=== PATIENT | female | born 1955 | race Caucasian/White ===

== ENCOUNTER 2024-04-26 11:40 | Outpatient (CLI) | payer MEDICARE, SELFPAY ==
--- NOTE | 2024-04-26 11:40 | MM_ITS ---
WS: [id number] Bilateral screening 3D tomosynthesis digital mammogram, 04/26/2024 11:43 AM Clinical Data: SCREENING Comparison: 10/13/2016, 05/15/2012. Findings: No spiculated masses or clustered calcifications are seen. There are no secondary signs of carcinoma . MM/MM scr BI tomosynthesis [id number] Impression: Negative bilateral mammogram unchanged. Recommend annual screening mammograms. BIRADS: 1 - Negative. FOLLOW UP: 1 Year Follow-up DENSITY: The breasts are almost entirely fatty. The CAD shellfish checker was used
== END 2024-04-26 11:41 | disposition home or self-care (01) ==
LOC: MOBLMAM 11:48
PROVIDERS: PCP Family Medicine; Visit Provider Family Medicine
DX: Z12.31 Encounter for screening mammogram for malignant neoplasm of breast (principal)
CPT/HCPCS: 77063; 77067

== ENCOUNTER 2025-06-06 17:38 | Emergency (ER) | payer MEDICARE, SELFPAY ==
[2025-06-06 17:42] VITALS: BP 138/100; PULSE 72; RESP 17; TEMP 36.5; O2SAT 96; BMI 27.3
--- NOTE | 2025-06-06 17:48 | W.ED.GENADLT ---
HPI - General Adult General: Chief complaint: Wound/Laceration Stated complaint: rt thumb lac Time Seen by Provider: 06/06/25 17:43 Source: patient Mode of arrival: ambulatory Limitations: no limitations History of Present Illness: 69-year-old female states she was using a machine clerical verifier at 1630 and lacerated the tip of her right thumb. She states that she is not able to get the bleeding to stop. She denies any other injury she is up-to-date on her tetanus rates her pain a 3 out of 10 Related Data Allergies Allergy/AdvReac Type Severity Reaction Status Date / Time No Known Allergies Allergy Verified 06/06/25 17:49 Physical Exam Const: COMMON NORMALS: no acute distress, patient oriented x3 and healthy appearing HENMT: COMMON NORMALS: normocephalic and atraumatic HEAD & SCALP: normocephalic and atraumatic Neck/C-Spine: COMMON NORMALS: full ROM and supple Chest: COMMONS NORMALS: normal inspection of the chest Resp: COMMON NORMALS: normal respiratory effort Cardio: COMMON NORMALS: regular rate RATE: regular rate Extremity: COMMON NORMALS: full ROM Neuro: COMMON NORMALS: patient oriented x3, moves all extremities and no focal motor deficits Psych: COMMON NORMALS: mental status grossly normal, Normal thought process present and cooperative THOUGHT PROCESS: Normal thought process present Skin: COMMON NORMALS: no rashes or lesions noted NARRATIVE SKIN EXAM: 1 cm laceration over distal tip of right thumb GENERAL SKIN EXAM: no rashes or lesions noted Procedures Laceration Laceration 1: Site: hand Side (If applicable): right Size (cm): 1 Description: linear Depth: simple, single layer Pre-repair: wound explored, irrigated extensively and deep structures intact Skin layer closed with: other (dermabond) Course Vital Signs: Vital signs: Vital Signs Temperature 97.7 F 06/06/25 17:42 Pulse Rate 58 L 06/06/25 17:52 Respiratory Rate 17 06/06/25 17:42 Blood Pressure 138/100 06/06/25 17:52 Pulse Oximetry 92 06/06/25 17:52 Oxygen Delivery Me thod Room Air 06/06/25 17:42 MDM - General Adult Medical Decision Making Patient presents here with a laceration to the distal tip of her right thumb did repair it with Dermabond she is well-appearing here she stable for discharge follow-up with PCP return if worsening No radiology studies performed this visit Discharge Plan Discharge Patient Disposition: Home Clinical Impression: Laceration of left thumb Condition: Stable Discharge Orders: Discharge ED (Routine); Ordered 06/06/25 Ordered By: Peyman Bhakta Referrals: Bonifacio Morgan MD [Primary Care Provider, [facility]] Discharge Diet: Advance as tolerated Discharge Activity: Resume usual activity Patient Instructions: Laceration (ED) Print Language: Mohawk Coding Level of Care Code ED Microbiological Laboratory Technician for Jayna Powell
--- OUTSIDE RECORDS SUMMARY | 2025-06-06 17:49 | XMS_ITS | Encounter Summary ---
Author Organization [facility] Address [address] [place] [address] Care Team Providers Care Steam Trap Man Name Role Phone Chidi Araya MD Primary Care Provider +1 [phone] Encounter Details Date Type Department Care Team (Latest Contact Info) Description 08/13/2003 Outpatient Historical [facility] Family Medicine [place] [address] [address] Chalino Rivas DO NO ADDRESS ON FILE LUMBAGO (Primary Dx) Social History Tobacco Use Types Packs/Day Years Used Date Smoking Tobacco: Never Assessed Comments Unknown Sex and Gender Information Value Date Recorded Sex Assigned at Not on file 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
--- OUTSIDE RECORDS SUMMARY | 2025-06-06 17:49 | XMS_ITS | Encounter Summary ---
Author Organization [facility] Address [address] [place] [address] Care Team Providers Care Picking Belt Operator Name Role Phone Chidi Araya MD Primary Care Provider +1 [phone] Encounter Details Date Type Department Care Team (Latest Contact Info) Description 04/23/2002 Outpatient Historical [facility] Medicine [place] [address] [address] Chalino Rivas DO NO ADDRESS ON FILE DEPRESSIVE DISORDER NEC (Primary Dx) Social History Tobacco Use Types Packs/Day Years Used Date Smoking Tobacco: Never Assessed Comments Unknown Sex and Gender Information Value Date Recorded Sex Assigned at Not on file Legal Sex Female 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
--- OUTSIDE RECORDS SUMMARY | 2025-06-06 17:49 | XMS_ITS | Clinical Summary ---
Author Organization [facility] Address [address] [facility] [address] [place] [address] Phone Care Team Providers Care Machine Printer Name Role Phone Chidi Araya MD Primary Care Provider +1 [phone] Allergies Active Allergy Reactions Criticality Noted Date Comments Cefaclor Itching Low 12/24/2017 Medications calcium-vitamin D3 (CALTRATE 600+D) 600 mg(1,500mg) -200 unit Tablet Take by mouth late in the day. Active aspirin (ILAN CHEWABLE) 81 mg Tablet, Chewable Take 81 mg by mouth late in the day. Active glucosamine/methyl sulfonylmeth (GLUCOSAMINE MSM ORAL) Take by mouth. Activ e PARoxetine HCl (PAXIL) 20 mg tabletIndications: Recurrent major depressive disorder, in full remission Take 1 Tablet (20 mg) by mouth daily. 90 Tablet 3 1 Active simvastatin (ZOCOR) 20 mg tabletIndications: Hyperlipidemia, unspecified hyperlipidemia type Take 1 Tablet (20 mg) by mouth daily with supper. 90 Tablet 3 1 Active CPAP / BIPAP suppliesIndication s:HARSHAD on CPAP Length of need: 99 months Mask Type: full face with headgear every 6 months, mask only every 3 months,2 cushions per month. Tubing: heated 1 every 3 months, water chamber 1 every 6 months, chin strap 1 every 6 months, filters disposable 2 per month, filters reusable 1 per 6 months. 1 Each 1 Active Active Problems Problem Noted Date Diagnosed Date Hyperlipidemia 11/07/2020 HARSHAD on CPAP 11/07/2020 Recurrent major depressive disorder, in full rem ission 09/22/2020 Vitamin B12 deficiency (non anemic) 09/22/2020 Stage 3a chronic kidney disease 09/22/2020 Immunizations Immunization Administration Dates Next Due (ADACEL/BOOSTRIX)(10 YR UP) TDAP VACCINE, 0.5ML, IM 11/05/2020 (TDVAX)(7 YRS UP) TETANUS AN D DIPHTHERIA TOXOIDS, ADSORBED (2 LF OF TETANUS TOXOID AND 2 LF OF DIPHTHERIA TOXOID), 0.5ML (PF), IM 11/12/2003,11/28/1998 Family History Medical History Relation Name Comments Breast Cancer Neg Hx Colon Cancer Neg Hx Social History Tobacco Use Types Packs/Day Years Used Date Smoking Tobacco: Never Smokeless Tobacco: Never Alcohol Use Standard Drinks/Week Comments No 0 (1 standard drink = 0.6 oz pur e alcohol) Comments No Sex and Gender Information Value Date Recorded Sex Assigned at Not on file 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 Gender Identity Not on file Sexual Orientation Not on file Last Filed Vital Signs Vital Sign Reading Time Taken Comments Blood Pressure 102/70 11/05/2020 1:33 PM CDT Pulse 76 11/05/2020 1:33 PM CDT Temperature 35.9 C (96.7 F) 11/05/2020 1:33 PM CDT Respiratory Rate 19 11/05/2020 1:33 PM CDT Oxygen Saturation 93% 11/05/2020 1:33 PM CDT Inhaled Oxygen Concentration - - Weight 75.6 kg (166 lb 9.6 oz) 11/05/2020 1:33 P M CDT Height 165.1 cm (5' 5 ) 11/05/2020 1:33 PM CDT Body Mass Index 27.72 11/05/2020 1:33 PM CDT Plan of Treatment Health Maintenance Due Date Last Done Comments FIT/ DNA Q 3 YEARS (AUTO ORDER) 1972 FIT/FOBT Q 1 YEAR (AUTO ORDER) 1972 FLEX SIG/CT COLONOGRAPHY Q 5 YEARS (AUTO ORDER) 1972 Traditional Medicare (ACO) A nnual Wellness Visit 1973 BREAST CANCER SCREENING 1994 FIT-DNA Q 3 years 1999 FIT/FOBT Q 1 year 1999 Flex Sig/CT Colonography Q 5 years 1999 PNEUMOCOCCAL VACCINE 50+ YEA RS (1 of 1 - PCV) 2004 RSV VACCINE (60+ or ) (1 - Risk 50-74 years 1-dose series) 2004 ZOSTER VACCINE (1 of 2) 2004 OSTEOPOROSIS SCREENING 09/28/2022 09/28/2017 INFLUENZA VACCINE (#1) 2025 09/22/2020 COLORECTAL CANCER SCREENING (AUTO ORDER) 10/12/2027 10/11/2017 COLORECTAL SCREENING 10/12/2027 10/11/2017 Colorectal Cancer Screening (AUTO ORDER) 10/12/2027 Colorectal Cancer Screening 10/12/2027 DTAP/TDAP/TD VACCINES (2 - T d or Tdap) 11/05/2030 11/05/2020, 11/12/2003, 11/28/1998 Procedures Procedure Name Priority Date/Time Associated Diagnosis Comments ENDOSCOPY, COLON, SCREENING Routine 10/11/2017 XR DEXA BONE DENSITY AXIAL 1 OR MORE SITES Routine 09/28/2017 from Last 3 Months or Most Recently Relevant to Health Maintenance Results * ENDOSCOPY, COLON, SCREENING (10/11/2017) us Abstract Spg Provider GI PROCEDURE ORDERABLES Fi nal Result * XR DEXA BONE DENSITY AXIAL 1 OR MORE SITES (09/28/2017) Anatomical Region Laterality Modality Other us Abstract Spg Provider DIAGNOSTIC IMAGING ORDERAB LES Final Result from Last 3 Months or Most Recently Relevant to Health Maintenance Insurance MEDICARE PART A AND B [employer] Care Teams Machine Printer Relationship Specialty Start Date End Date Chidi Araya MD [address] [address] PCP - General Family Practice 09/22/20
--- OUTSIDE RECORDS SUMMARY | 2025-06-06 17:49 | XMS_ITS | Encounter Summary ---
Author Organization [facility] Address [address] [place] [address] Care Team Providers Care Couture Dressmaker Name Role Phone Chidi Araya MD Primary Care Provider [phone] [phone] Encounter Details Date Type Department Care Team (Late st Contact Info) Description 11/06/2003 Outpatient Historical [facility] [address] [place] [address] [place] [address] [facility] [address] [place], [place] [id number] FX LUMBAR VERTEBRA-CLOSE ([facility]) (Primary Dx); CLOSE LUMBAR FX W CORD INJ ([facility]) Social History Tobacco Use Types Packs/Day Years Used Date Smoking Tobacco: Never Assessed Comments Unknown Sex and Gender Information Value Date Recorded Sex Assigned at Not on file Legal Sex Female 5:06 AM DIRECTOR TOXICOLOGY Gender Identity Not on file Sexual Orientation Not on file documented as of this encounter Plan of Treatment Not on file documented as of this encounter Visit Diagnoses Diagnosis Closed fracture of lumbar vertebra without mention of spinal cord injury- Primary Closed fracture of lumbar spine with spinal cord injury documented in this encounter Care Teams Couture Dressmaker Relationship Specialty Start Date End Date Chidi Araya MD [address] [facility] [address] [place] [address] PCP - General Family Practice 09/22/20 documented as of this encounter
--- OUTSIDE RECORDS SUMMARY | 2025-06-06 17:49 | XMS_ITS | Clinical Summary ---
Author Organization [facility] Address [address] [address] Phone Care Team Providers Care Geophysical Laboratory Chief Name Role Phone Unavailable Primary Care Provider Unavailabl e Allergies Active Allergy Reactions Criticality Noted Date Comments Cefaclor Itching Low 12/24/2017 Medications glucosamine/methyl sulfonylmeth (GLUCOSAMINE MSM ORAL) Take by mouth. 0 Active CPAP / BIPAP suppliesIndication s:HARSHAD on CPAP Length of need: 99 monthsMask Type: full face with headgear every 6 months, mask only every 3 months,2 cushions per month. Tubing: heated 1 every 3 months, water chamber 1 every 6 months, chin strap 1 every 6 months, filters disposable 2 per month, filters reusable 1 per 6 months. 1 Each 0 1 Active calcium-vitamin D3 (CALTRATE 600+D) 600 mg-5 mcg (200 unit) Tablet Take by mouth late in the day. 9 Active aspirin (ILAN CHEWABLE) 81 mg Tablet, Chewable Take 81 mg by mouth late in the day. 9 Active PARoxetine HCl (PAXIL) 20 mg tabletIndications: Recurrent major depressive disorder, in full remission Take 1 Tablet (20 mg) by mouth daily. 90 Tablet 3 3 Active simvastatin (ZOCOR) 20 mg tabletIndications: Hyperlipidemia, unspecified hyperlipidemia type Take 1 Tablet (20 mg) by mouth daily with supper. 90 Tablet 3 3 Active Hospital, Clinic, or Other Facility Administered Medication Ordered Dose Route Frequency Start Date End Date Status cyanocobalamin (VITAMIN B-12) injection 1,000 mcgIndications:Low vitamin B12 level 1000 mcg IM EVERY MONTH 01/16/2021 Active Active Problems Problem Noted Date Diagnosed Date Hyperlipidemia 11/07/2020 HARSHAD on CPAP 11/07/2020 Recurrent major depressive disorder, in full rem ission 09/22/2020 Stage 3a chronic kidney disease 09/22/2020 Vitamin B12 deficiency (non anemic) 09/22/2020 Immunizations Immunization Administration Dates Next Due (ADACEL/BOOSTRIX)(10 YR UP) TDAP VACCINE, 0.5ML, IM 11/05/2020 (TDVAX)(7 YRS UP) TETANUS AN D DIPHTHERIA TOXOIDS, ADSORBED (2 LF OF TETANUS TOXOID AND 2 LF OF DIPHTHERIA TOXOID), 0.5ML (PF), IM 11/12/2003,11/28/1998 Influenza Seasonal Unspecified Formulation IM Family History Medical History Relation Name Comments Breast Cancer Neg Hx Colon Cancer Neg Hx Social History Tobacco Use Types Packs/Day Years Used Date Smoking Tobacco: Never Smokeless Tobacco: Never Tobacco Cessation:Counseling Given: No Alcohol Use Standard Drinks/Week Comments No 0 (1 standard drink = 0.6 oz pur e alcohol) Comments No Sex and Gender Information Value Date Recorded Sex Assigned at Not on file 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 Gender Identity Not on file Sexual Orientation Not on file Last Filed Vital Signs Vital Sign Reading Time Taken Comments Blood Pressure 118/76 12/01/2022 11:35 AM CDT Pulse 86 12/01/2022 11:35 AM CDT Temperature 36.6 C (97.8 F) 12/01/2022 11:35 AM CDT Respiratory Rate 16 12/01/2022 11:35 AM CDT Oxygen Saturation 97% 12/01/2022 11:35 AM CDT Inhaled Oxygen Concentration - - Weight 71.7 kg (158 lb) 12/01/2022 11:35 AM CDT Height 167.6 cm (5' 6 ) 12/01/2022 11:35 AM CDT Body Mass Index 25.5 12/01/2022 11:35 AM CDT Plan of Treatment Health Maintenance Due Date Last Done Comments BREAST CANCER SCREENING 1994 FIT-DNA Q 3 years 1999 FIT/FOBT Q 1 year 1999 Flex Sig/CT Colonography Q 5 years 1999 PNEUMOCOCCAL VACCINE 50+ YEA RS (1 of 1 - PCV) 2004 RSV VACCINE (60+ or ) (1 - Risk 50-74 years 1-dose series) 2004 ZOSTER VACCINE (1 of 2) 2004 OSTEOPOROSIS SCREENING 09/28/2022 09/28/2017, 2017 INFLUENZA VACCINE (#1) 2025 3, 11/05/2021, 09/22/2020, Additional history exists COLORECTAL SCREENING 10/12/2027 10/11/2017, 10/12/19 18 Colorectal Cancer Screening 10/12/2027 DTAP/TDAP/TD VACCINES (2 - T d or Tdap) 11/05/2030 11/05/2020, 11/12/2003, 11/28/1998 Procedures Procedure Name Priority Date/Time Associated Diagnosis Comments ENDOSCOPY, COLON, SCREENING 10/11/2017 12:00 AM CDT XR DEXA BONE DENSITY AXIAL 1 OR MORE SITES 09/28/2017 12:00 AM CDT from Last 3 Months or Most Recently Relevant to Health Maintenance Results * ENDOSCOPY, COLON, SCREENING (10/11/2017 12:00 AM CDT) us Sgf Scanning GI PROCEDURE ORDERABLES Final Re sult * XR DEXA BONE DENSITY AXIAL 1 OR MORE SITES (09/28/2017 12:00 AM CDT) Anatomical Region Laterality Modality Other us Sgf Scanning DIAGNOSTIC IMAGING ORDERABLES Fi nal Result from Last 3 Months or Most Recently Relevant to Health Maintenance Insurance [facility]
--- OUTSIDE RECORDS SUMMARY | 2025-06-06 17:49 | XMS_ITS | Encounter Summary ---
Author Organization [facility] Address [address] [place] [address] Care Team Providers Care Bed Spring Maker Name Role Phone Chidi Araya MD Primary Care Provider [phone] [phone] Encounter Details Date Type Department Care Team (Latest Contact Info) Description 03/06/2004 Outpatient Historical [facility] Family Medicine [address] [address] Chalino Rivas DO NO ADDRESS ON FILE BACKACHE NOS (Primary Dx) Social History Tobacco Use Types Packs/Day Years Used Date Smoking Tobacco: Never Assessed Comments Unknown Sex and Gender Information Value Date Recorded Sex Assigned at Not on file Legal Sex Female 5:06 AM MANAGER ER Gender Identity Not on file Sexual Orientation Not on file documented as of this encounter Plan of Treatment Not on file documented as of this encounter Visit Diagnoses Diagnosis Backache, unspecified- Primary documented in this encounter Care Teams Bed Spring Maker Relationship Specialty Start Date End Date Chidi Araya MD [address] [address] PCP - General Family Practice 09/22/20 documented as of this encounter
--- OUTSIDE RECORDS SUMMARY | 2025-06-06 17:49 | XMS_ITS | Encounter Summary ---
Author Organization [facility] Address [address] [place] [address] Care Team Providers Care Veneer Marker Name Role Phone Chidi Araya MD Primary Care Provider [phone] [phone] Encounter Details Date Type Department Care Team (Latest Contact Info) Description 05/08/2003 Outpatient Historical [facility] [place] [address] [address] Chalino Rivas DO NO ADDRESS ON FILE INSOMNIA NEC (Primary Dx) Social History Tobacco Use Types Packs/Day Years Used Date Smoking Tobacco: Never Assessed Comments Unknown Sex and Gender Information Value Date Recorded Sex Assigned at Not on file Legal 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
--- OUTSIDE RECORDS SUMMARY | 2025-06-06 17:49 | XMS_ITS | Encounter Summary ---
Author Organization [facility] Address [address] [place] [address] Care Team Providers Care Signaling Design Engineer Name Role Phone Chidi Araya MD Primary Care Provider +1 -[phone] Encounter Details Date Type Department Care Team (Late st Contact Info) Description 08/16/2003 Outpatient Historical [facility] [address] [place] [address] [place] [address] [facility] [address] [place] [address] LUMBAGO (Primary Dx) Social History Tobacco Use Types Packs/Day Years Used Date Smoking Tobacco: Never Assessed Comments Unknown Sex and Gender Information Value Date Recorded Sex Assigned at Not on file Legal Sex Female 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
--- OUTSIDE RECORDS SUMMARY | 2025-06-06 17:49 | XMS_ITS | Encounter Summary ---
Author Organization [facility] Address [address] [place] [address] Care Team Providers Care Silk Screen Processor Name Role Phone Chidi Araya MD Primary Care Provider +1 -[phone] Encounter Details Date Type Department Care Team (Late st Contact Info) Description 10/02/2003 Outpatient Historical [facility] [address] 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
--- OUTSIDE RECORDS SUMMARY | 2025-06-06 17:49 | XMS_ITS | Encounter Summary ---
Author Organization [facility] Address [address] [place] [address] Care Team Providers Care Hub Bander Name Role Phone Chidi Araya MD Primary Care Provider +1 -[phone] Encounter Details Date Type Department Care Team (Latest Contact Info) Description 09/12/2002 Outpatient Historical [facility] Family Medicine [address] [address] Chalino Rivas DO NO ADDRESS ON FILE CHEST PAIN NOS (Primary Dx) Social History Tobacco Use Types Packs/Day Years Used Date Smoking Tobacco: Never Assessed Comments Unknown Sex and Gender Information Value Date Recorded Sex Assigned at Not on file Legal Sex Female 5: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
--- OUTSIDE RECORDS SUMMARY | 2025-06-06 17:49 | XMS_ITS | Encounter Summary ---
Author Organization [facility] Address [address] [place] [address] Care Team Providers Care Polystyrene Molding Machine Tender Name Role Phone Chidi Araya MD Primary Care Provider +1 -[phone] Encounter Details Date Type Department Care Team (Latest Contact Info) Description 01/20/2004 Outpatient Historical [facility] Family Medicine [address] [address] Chalino Rivas DO NO ADDRESS ON FILE BACKACHE NOS (Primary Dx) Social History Tobacco Use Types Packs/Day Years Used Date Smoking Tobacco: Never Assessed Comments Unknown Sex and Gender Information Value Date Recorded Sex Assigned at Not on file Legal Sex Female 5:06 AM PRIVACY DIRECTOR Gender Identity Not on file Sexual Orientation Not on file documented as of this encounter Plan of Treatment Not on file documented as of this encounter Visit Diagnoses Diagnosis Backache, unspecified- Primary documented in this encounter Care Teams Polystyrene Molding Machine Tender Relationship Specialty Start Date End Date Chidi Araya MD [address] [address] PCP - General Family Practice 09/22/20 documented as of this encounter
--- OUTSIDE RECORDS SUMMARY | 2025-06-06 17:49 | XMS_ITS | Encounter Summary ---
Author Organization [facility] Address [address] [place] [address] Care Team Providers Care Weighter Name Role Phone Chidi Araya MD Primary Care Provider [phone] Encounter Details Date Type Department Care Team (Latest Contact Info) Description 07/25/2003 Outpatient Historical [facility] [place] [address] 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
--- OUTSIDE RECORDS SUMMARY | 2025-06-06 17:49 | XMS_ITS | Encounter Summary ---
Author Organization [facility] Address [address] [place] [address] Care Team Providers Care Accounting File Clerk Name Role Phone Chidi Araya MD Primary Care Provider [phone] Encounter Details Date Type Department Care Team (Latest Contact Info) Description 02/12/2003 Outpatient Historical [facility] [place] [address] [address] Chalino Rivas DO NO ADDRESS ON FILE DEPRESSIVE DISORDER NEC (Primary Dx) Social History Tobacco Use Types Packs/Day Years Used Date Smoking Tobacco: Never Assessed Comments Unknown Sex and Gender Information Value Date Recorded Sex Assigned at Not on file 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
--- OUTSIDE RECORDS SUMMARY | 2025-06-06 17:49 | XMS_ITS | Encounter Summary ---
Author Organization [facility] Address [address] [place] [address] Care Team Providers Care Logistics Operations Manager Name Role Phone Chidi Araya MD Primary Care Provider [phone] Encounter Details Date Type Department Care Team (Late st Contact Info) Description 08/07/2003 Outpatient Historical [facility] [address] [place] [address] [place] [address] [facility] [address] [place] [address] FX LUMBAR VERTEBRA-CLOSE ([facility]) (Primary Dx) Social History Tobacco Use Types Packs/Day Years Used Date Smoking Tobacco: Never Assessed Comments Unknown Sex and Gender Information Value Date Recorded Sex Assigned at Not on file 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
--- OUTSIDE RECORDS SUMMARY | 2025-06-06 17:49 | XMS_ITS | Encounter Summary ---
Author Organization [facility] Address [address] [place] [address] Care Team Providers Care White Washer Piler Name Role Phone Chidi Araya MD Primary Care Provider [phone] Encounter Details Date Type Department Care Team (Latest Contact Info) Description 12/14/2002 Outpatient Historical [facility] [place] [address] [address] Chalino Rivas DO NO ADDRESS ON FILE Sprain lumbosacral (Primary Dx) Social History Tobacco Use Types Packs/Day Years Used Date Smoking Tobacco: Never Assessed Comments Unknown Sex and Gender Information Value Date Recorded Sex Assigned at Not on file 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
--- OUTSIDE RECORDS SUMMARY | 2025-06-06 17:49 | XMS_ITS | Encounter Summary ---
Author Organization [facility] Address [address] [place] [address] Care Team Providers Care Wool Grader Name Role Phone Chidi Araya MD Primary Care Provider [phone] Encounter Details Date Type Department Care Team (Latest Contact Info) Description 07/25/2003 Inpatient Historical [facility] Emergency Department [address] [place] [address] [place] [address] [facility] [address] [place] [address] CLOSE LUMBAR FX W CORD INJ (CMS/HCC) (Primary Dx) Social History Tobacco Use Types Packs/Day Years Used Date Smoking Tobacco: Never Assessed Comments Unknown Sex and Gender Information Value Date Recorded Sex Assigned at Not on file 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
--- OUTSIDE RECORDS SUMMARY | 2025-06-06 17:49 | XMS_ITS | Encounter Summary ---
Author Organization [facility] Address [address] [place] [address] Care Team Providers Care Jumbo Operator Name Role Phone Chidi Araya MD Primary Care Provider [phone] Encounter Details Date Type Department Care Team (Late st Contact Info) Description 08/16/2003 Outpatient Historical [facility] [address] [place] [address] 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
--- OUTSIDE RECORDS SUMMARY | 2025-06-06 17:49 | XMS_ITS | Continuity of Care Document ---
Author Organization GUTIERREZ Seaman [facility] Shanelle Crawford, [facility] ([facility]) Address [address] [facility] [place] [address] Assessment No assessment recorded. Plan of Treatment Reminders Order Date Submit Date Provider Last Modified By Organization Details Last Modified Time Details Appointments None recorded. Lab CBC w/ auto diff [address] [place] [address] Lab, [address], [address], 5 16:39:49 vitamin D, 25-hydroxy, total, serum 2024 025 [facility] Lab, [address] [facility], [place], [address], 5 04:47:35 lipid panel, blood 2024 025 [facility] Lab, [address] [facility], [place], [address], 5 13:03:39 CMP, serum or plasma 2024 025 [facility] Lab, [address], [address], 5 13:03:35 Referral None recorded. Procedures None recorded. Surgeries None recorded. Imaging None recorded. Medication Orders paroxetine 30 mg tablet [address] [facility] 15, [address], [place], [address], 11:36:15 Patient TargetsNo targets recorded. Patient InstructionsNo instructions recorded. Reason for Referral None Reported. Results Created Date Observation Date Name Description Value Unit Range Abnormal Flag Note LastModifiedBy Organization Detail LastModifiedTime 05/28/2005/28/2025 CBC WBC 4.8 x10 4.0-10 .5 Not Available [facility] [address], [place], [address], 05/28/2025 12:53:34 05/28/2005/28/2025 CBC RBC 4.53 x10 3.50-5 .50 Not Available [facility] [address], [place], [address], 05/28/2025 12:53:34 05/28/2005/28/2025 CBC HGB 14.7 g/dL 12.0-1 6.0 Not Available [facility] [address] [facility] 1, [place], [address], 05/28/2025 12:53:34 05/28/2005/28/2025 CBC HCT 44.3 % 37.0-4 7.0 Not Available [facility] [address] [facility] 1, [place], [address], 05/28/2025 12:53:34 05/28/2005/28/2025 CBC MCV 97.9 fL 80.0-9 9.9 Not Available [facility] [address], [place], [address], 05/28/2025 12:53:34 05/28/2005/28/2025 CBC MCH 32.4 pg 27.0-3 2.0 high Not Available [facility] [address] [facility] 1, [place], [address], 05/28/2025 12:53:34 05/28/20 25 05/28/2025 CBC MCHC 33.1 g/dL 32.0-3 6.0 Not Available [facility] [address] [facility] 1, [place], [address], 05/28/2025 12:53:34 05/28/20 25 05/28/2025 CBC RDW 13.2 % 11.5-1 4.5 Not Available [facility] [address] [facility] 1, [place], [address], 05/28/2025 12:53:34 05/28/2005/28/2025 CBC plt 221.2 x10 140.0- 451.0 Not Available [facility] [address] [facility] 1, [place], [address], 05/28/2025 12:53:34 05/28/20 25 05/28/2025 CBC lymphocytes % 34.9 % 20.0-5 0.0 Not Available [facility] [address] [facility] 1, [place], [address], 05/28/2025 12:53:34 05/28/20 25 05/28/2025 CBC granulcytes % 55.3 % 30.0-7 0.0 Not Available [facility] [address] [facility] 1, [place], [address], 05/28/2025 12:53:34 05/28/20 25 05/28/2025 CBC monocytes % 7.2 % 2.0-16 .0 Not Available [facility] [address] [facility] 1, [place], [address], 05/28/2025 12:53:34 05/28/20 25 05/28/2025 CBC granulcytes# 2.6 x10 Not Ailin ilable [facility] [address] [facility], [place], [address], 05/28/2025 12:53:34 05/28/20 25 05/28/2025 CBC lymphocytes # 1.7 x10 Not Available [facility] [address] [facility], [place], [address], 05/28/2025 12:53:34 05/28/20 25 05/28/2025 CBC monocytes # 0.3 x10 Not Avai lable [facility] [address] [facility] [address], [place], [address], 05/28/2025 12:53:34 05/28/20 25 05/28/2025 CMP (FEMA LE) glucose 103.0 mg/dL 60.0-9 9.0 high Not Available [facility] [address] [address], [place], [address], 05/28/2025 13:03:35 05/28/20 25 05/28/2025 CMP (FEMA LE) BUN (blood urea nitrogen) 11.0 mg/dL 10.0-2 6.0 Not Available [facility] [address] [address], [place], [address], 05/28/2025 13:03:35 05/28/20 25 05/28/2025 CMP (FEMA LE) creatinine (serum) 1.0 mg/dL 0.4-1. 5 Not Available [facility] [address] [address], [place], [address], 05/28/2025 13:03:35 05/28/20 25 05/28/2025 CMP (FEMA LE) BUN/creatini ne ratio 11.00 ratio Not Available [facility] [address] [address], [place], [address], 05/28/2025 13:03:35 05/28/20 25 05/28/2025 CMP (FEMA LE) eGFR calculated 58.3 Not Available [facility] [address] [facility], [place], [address], 05/28/2025 13:03:35 05/28/20 25 05/28/2025 CMP (FEMA LE) total protein 7.3 g/dL 6.0-8. 5 Not Available [facility] [address] [facility] 1, [place], [address], 05/28/2025 13:03:35 05/28/20 25 05/28/2025 CMP (FEMA LE) total bilirubin 1.5 mg/dL 0.2-1. 3 high Not Available [facility] [address] [facility] 1, [place], [address], 05/28/2025 13:03:35 05/28/20 25 05/28/2025 CMP (FEMA LE) albumin 4.5 g/dL 3.5-5. 5 Not Available [facility] [address] [facility] 1, [place], [address], 05/28/2025 13:03:35 05/28/20 25 05/28/2025 CMP (FEMA LE) globulin 2.8 calc Not Available [facility] [address] [facility] 1, [place], [address], 05/28/2025 13:03:35 05/28/20 25 05/28/2025 CMP (FEMA LE) AST (SGOT) 26.0 U/L 0.0-46 .0 Not Available [facility] [address] [facility] Lindsay [facility] 1, [place], [address], 05/28/2025 13:03:35 05/28/20 25 05/28/2025 CMP (FEMA LE) altv (SGPT) 16.0 U/L 13.0-6 9.0 normal Not Available [facility] [address] [facility], [place], [address], 05/28/2025 13:03:35 05/28/20 25 05/28/2025 CMP (FEMA LE) A/G ratio 1.6 ratio Not Available [facility] [address] [facility] [address], [place], [address], 05/28/2025 13:03:35 05/28/20 25 05/28/2025 CMP (FEMA LE) ALP phos 64.0 U/L 30.0-1 40.0 normal Not Available [facility] [address] [facility] [address], [place], [address], 05/28/2025 13:03:35 05/28/20 25 05/28/2025 CMP (FEMA LE) calcium 9.0 mg/dL 8.4-10 .5 Not Available [facility] [address] [facility] [address], [place], [address], 05/28/2025 13:03:35 05/28/20 25 05/28/2025 CMP (FEMA LE) sodium 140.0 mmol/ L 136.0- 145.0 Not Available [facility] [address] [facility] [address], [place], [address], 05/28/2025 13:03:35 05/28/20 25 05/28/2025 CMP (FEMA LE) potassium 4.3 mmol/ L 3.5-5. 1 Not Available [facility] [address] [facility] [address], [place], [address], 05/28/2025 13:03:35 05/28/20 25 05/28/2025 CMP (FEMA LE) chloride 104.0 mmol/ L 98.0-1 10.0 normal Not Available [facility] [address] [facility] [address], [place], [address], 05/28/2025 13:03:35 05/28/20 25 05/28/2025 CMP (FEMA LE) C02 28.0 mmol/ L 22.0-3 1.0 Not Available [facility] [address] [place] [facility], [place], [address], 05/28/2025 13:03:35 05/28/20 25 05/28/2025 CMP (FEMA LE) anion gap 8.0 calc Not Available [facility] [address] [facility] [address], [place], [address], 05/28/2025 13:03:35 05/28/20 25 05/28/2025 CMP (FEMA LE) osmolality 288.8 calc Not Available [facility] [address] [facility] [address], [place], [address], 05/28/2025 13:03:35 05/28/20 25 05/28/2025 LIPID PROFI LE (FEMA LE) cholesterol 212.0 mg/dL 0.0-20 0.0 high Not Available [facility] [address] [facility] 1, [place], [address], 05/28/2025 13:03:39 05/28/20 25 05/28/2025 LIPID PROFI LE (FEMA LE) trig 121.0 mg/dL 0.0-15 0.0 Not Available [facility] [address] [facility] [address], [place], [address], 05/28/2025 13:03:39 05/28/20 25 05/28/2025 LIPID PROFI LE (FEMA LE) HDL - direct 69.0 mg/dL >40.0 Not Available [facility] [address] [facility] [address], [place], [address], 05/28/2025 13:03:39 05/28/20 25 05/28/2025 LIPID PROFI LE (FEMA LE) VLDL - direct 24.2 mg/dL Not Available [facility] [address] [facility] [address], [place], [address], 05/28/2025 13:03:39 05/28/20 25 05/28/2025 LIPID PROFI LE (FEMA LE) LDL - direct 118.8 mg/dL 0.0-13 0.0 Not Available [facility] [address] [facility] [address], [place], [address], 05/28/2025 13:03:39 05/28/2005/29/2025 VITAM IN D,25- OH,TO SAFIA,I A vitamin D,25-oh,tota l,ia 32 NG/mL 30-100 normal Vitam in D Statu s 25-OH Vitam in D: Defic iency : <20 ng/mL Insuf ficie ncy: 20 - 29 ng/mL Optim al: > or = 30 ng/mL For 25-OH Vitam in D testi ng on patie nts on D2-hutchison pplem entat ion and patie nts for whom quant itati on of D2 and D3 fract ions is requi red, the [employer] Assur eD(TM ) 25-OH VIT D, (D2,D 3), LC/MS /MS is recom tanmay d: order code 41428 (priyanka ents >2yrs ). See Note 1 Note 1 For addit ional infor sandra garcia refer to http: //[facility] lisa diaz.Ramón stDia gnost ics.c om/fa q/FAQ 199 (This link is being provi ded for infor king singletary/ rekha toussaint purpo ses only. ) Not Available [facility] [address] [place], [address], 05/29/2025 04:47:34 Result Notes None recorded. Problems Name Problem SNOMED Code Status Onset Date Resolution Date Notes Provider Name and Address Organization Details Recorded Time History of hysterecto my 007982522 Completed 200611/26/2024 Hystere ctomy; Abdomin al; 007 11:36AM by Jasper Valiente CMA, Office Visit; Promote d; acuity set as *; [facility] 5 09:59:45 Depressive disorder 66645909 Active 2023 [facility]te[facility] 4 09:59:33 Hyperlipid emia 52747918 Active 2023 [facility] 4 09:59:39 Vitamin D deficiency 61241230 Active 2024 Bonifacio Morgan MD [address] [place], [address], [facility] 5 10:36:47 Problem Notes None recorded. Procedures Surgical History Date Name Laterality Status Provider Name and Address Organization Details Recorded Time 5 colonoscopy completed GALLO MOTA [address] [place] [address], [phone], [facility] 01/29/2025 15:04:45 6 hysterectomy completed SELWYN CALDWELL [facility] 11/21/2023 10:00:24 Imaging Results None recorded. Procedure Notes None recorded. Medical Equipment None Reported. Allergies Allergen ID Allergen Name Allergen Category Reaction Reaction Severity Criticality Documentation Date Start Date Code Code System Note Provider Name and Address Organization Details Recorded Time 01676 Ceclor medicatio n hives Not available Not available 02/05/2023 5 RxNorm Comme nt: Recor ded 01/24 11:36 AM by Jasper xiong CMA, Offic e Visit ; [address]; Signi ficcassidy ce: *; ; Not Available [employer] 3 02:27:30 69502 cefaclor medicatio n itching Not available low 05/28/20252017 2176 RxNorm Not Available kristen - External Data Service - prod 04:43:16 Medications Name Sig Start Date Stop Date Status Note LastModified by Organization Details LastModified Time paroxetin e 30 mg tablet Take 1 tablet every day by oral route for 90 days. 2024 active Not Available Not Available Not Avai lable paroxetin e 20 mg tablet TAKE 1 TABLET BY MOUTH ONCE DAILY FOR DEPRESSI ON active Not Available Not Available No t Available simvastat in 20 mg tablet TAKE 1 TABLET BY MOUTH ONCE DAILY FOR CHOLESTE ROL active Not Available Not Available No t Available fludrocor tisone 11/20 completed 0; Recorded 01/25/20 07 11:36AM by Jasper Valiente CMA, Office Visit; Not Available Not Available Not Available paroxetin e HCl 11/20 completed 0; Recorded 01/25/20 07 11:36AM by Jasper Valiente CMA, Office Visit; Not Available Not Available Not Available cholecalc iferol (vitamin D3) 1,250 mcg (50,000 unit) capsule TAKE 1 CAPSULE BY MOUTH ONCE A WEEK 05/28 completed Not Available Not Available Not Available Vitals Date Recorded Body weight Oxygen saturation Heart rate Systolic And Diastolic Provider Name and Address Organization Details Last Updated DateTime 05/28/2025 88265.96 g 92 % 64 /min 132/80 mm[Hg] SELWYN CALDWELL [facility] 05/28/2025 11:04:26 Social History Question Answer Notes LastModified by Organizat ion Details LastModified Time Tobacco Smoking Status Never Smoker SELWYN montesinos [facility] 11/21/2023 10:02:41 Is Your Home Air Conditioned? Yes Information not available 04/26/2024 Do You Have A Basement? No Information not available 04/26/2024 Are You Blind Or Do You Have Difficulty Seeing? No Information n ot available 04/26/2024 What Is Your Level Of Caffeine Consumption? Occasional Information not available 04/26/2024 Are You A Caregiver? No Information not available 04/26/2024 What Type Of Traffic Manager Do You Use? None Information not available 04/26/2024 Are You Deaf Or Do You Have Serious Difficulty Hearing? No Information not available 04/26/2024 What Type Of Diet Are You Following? REGULAR Information n ot available 04/26/2024 What Is The Highest Grade Or Level Of School You Have Completed Or The Highest Degree You Have Received? [id number] Information not available 04/26/2024 Do You Have An Electrostatic Air Filter? No Information not available 04/26/2024 Which Of Your Hands Is Dominant? Right Information n ot available 04/26/2024 Do You Have A Humidifier? Yes Information not available 04/26/2024 Do You Use Insect Repellent Routinely? Yes Information not available 04/26/2024 Do You Have Moisture Problems In Your Home? No Information not available 04/26/2024 What Was The Date Of Your Most Recent Tobacco Screening? 04/26/2024 Information not available 04/26/2024 Do You Have Any Pets? No Information not available 04/26/2024 Do You Use Sunscreen Routinely? Yes Information not available 04/26/2024 Has Tobacco Cessation Counseling Been Provided? No Information not available 04/26/2024 Have You Recently Traveled Abroad? No Information not available 04/26/2024 Do You Have Difficulty Walking Or Climbing Stairs? No Information not available 04/26/2024 Are You Currently In School? No Information not available 04/26/2024 Do You Have Any Dietary Restrictions? No Information not available 04/26/2024 Sex: Unknown Functional Status Question Answer Note LastModified by [employer] Mag[employer] ion Details LastModified Time Do you use any illicit or recreational drugs? No [email or web address] Information not available 11/21/2023 Do you or have you ever used any other forms of tobacco or nicotine? No Information not available 04/26/2024 What is your level of alcohol consumption? None [email or web address] Information not available 11/21/2023 Are you currently employed? No Information not available 04/26/2024 Do you have transportation difficulties? No Information not available 04/26/2024 Are you able to walk independently without assistance or assistive devices? YESWOREST Information not available 04/26/2024 Do you have difficulty doing errands alone? No Information not available 04/26/2024 Are you able to care for yourself independently? Yes Information not available 04/26/2024 Do you have difficulty dressing, bathing, grooming, or toileting? No Information not available 04/26/2024 What is your exercise level? None Information not available 04/26/2024 Do you or have you ever used any nicotine-free cigarettes, vape, or chewing tobacco? No Information not available 04/26/2024 Mental Status Question Answer Note LastModified by Organization D etails LastModified Time Do you have difficulty concentrating, remembering or making decisions? No Information no t available 04/26/2024 Family History Nothing Reported. Medical History No medical history recorded. Gynecological HistoryNo gynecological history recorded. Obstetrics History GPAL:G 0 P 0 0 0 0 Immunizations Vaccine Type Date Status Note Provider Nam e and Address Organization Details Recorded Time Tdap 11/05/2020 completed SELWYN montesinos [facility] 11/21/2023 09:56:01 Past Encounters Encounter ID Performer Location Encounter Start Date Encounter Closed Date Diagnosis/Indication Diagnosis SNOMED-CT Code Diagnosis ICD10 Code Diagnosis IMO Codes Diagnosis Note [id number] Bonifacio Morgan MD [facility] ([facility]) [address] [place] [phone] 05/28/2025 10:48:37 05/28/2025 11:37:25 Depressive disorder 74682788 F32.9 Hyperlipidemia 35147134 E78.5 Health Concerns Section Related Observation LastModified by Organization Detai ls LastModified Time None Recorded Concern Status LastModified by Organization Details LastModified Time None Recorded Payers Encounter Date Sequence Insurance Name Policy Number Policy Souza Covered Member ID Souza Member ID Guarantor Name 05/28/2025 1 [place]ANTAGE - [place]PO) [id number] Sobia Hollingsworth [id number] Sobia Hollingsworth Notes Date Note Type Note Provider Name and Address Organization Details Recorded Time 5 text/html Anxiety/DepressionReport ed by PatientHPIFor severity, patient reportsinterference with activities of daily living (winter months.)but reportsdenies suicidal ideationsandable to maintain relationships. For context, patient reportsseasonal. For associated symptoms, patient reportsanxiety (at times.),depression, andfatigue. For onset/timing, patient reportsgradual. For modifying factors, patient reportsmedications as directed. HyperlipidemiaReported by PatientHPIFor duration, patient reportschronic. For control, patient reportsusually well controlled. For adherence to treatment plan, patient reportstakes medications as prescribed. Thinks that she needs to have her paroxetine increased. Bonifacio Morgan MD [address] [place] [address], [phone], [facility], Shanelle 05/28/2025 11:36:24 OBGyn Episode No OBEpisode recorded.
--- OUTSIDE RECORDS SUMMARY | 2025-06-06 17:49 | XMS_ITS | Encounter Summary ---
Author Organization [facility] Address [address] [place] [address] Care Team Providers Care Waiter/Waitress Take Out Name Role Phone Chidi Araya MD Primary Care Provider [phone] Encounter Details Date Type Department Care Team (Late st Contact Info) Description 06/11/2004 Outpatient Historical [facility] Family Medicine [place] [address] [phone] Social History Tobacco Use Types Packs/Day Years Used Date Smoking Tobacco: Never Assessed Comments Unknown Sex and Gender Information Value Date Recorded Sex Assigned at Not on file Legal Sex Female 5: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
--- OUTSIDE RECORDS SUMMARY | 2025-06-06 17:49 | XMS_ITS | Encounter Summary ---
Author Organization [facility] Address [address] [place] [address] Care Team Providers Care Teacher'S Aide Name Role Phone Chidi Araya MD Primary Care Provider [phone] Encounter Details Date Type Department Care Team (Latest Contact Info) Description 06/25/2002 Outpatient Historical [facility] Medicine [address] [address] Chalino Rivas DO NO ADDRESS ON FILE STRESS REACT, EMOTIONAL (Primary Dx) Social History Tobacco Use Types Packs/Day Years Used Date Smoking Tobacco: Never Assessed Comments Unknown Sex and Gender Information Value Date Recorded Sex Assigned at Not on file Legal Sex Female 5:[address] Gender Identity Not on file Sexual Orientation Not on file documented as of this encounter Plan of Treatment Not on file documented as of this encounter Visit Diagnoses Diagnosis Predominant disturbance of emotions- Primary documented in this encounter Care Teams Teacher'S Aide Relationship Specialty Start Date End Date Chidi Araya MD [address] [address] PCP - General Family Practice 09/22/20 documented as of this encounter
--- OUTSIDE RECORDS SUMMARY | 2025-06-06 17:49 | XMS_ITS | Encounter Summary ---
Author Organization [facility] Address [address] [place] [address] Care Team Providers Care Drilling Machine Operator Name Role Phone Chidi Araya MD Primary Care Provider [phone] Encounter Details Date Type Department Care Team (Late st Contact Info) Description 11/06/2003 Outpatient Historical [facility] [place] [address] [facility] [address] [place] [address] [place] [address] [facility] [address] [place] [address] LUMBAGO (Primary Dx) Social History Tobacco Use Types Packs/Day Years Used Date Smoking Tobacco: Never Assessed Comments Unknown Sex and Gender Information Value Date Recorded Sex Assigned at Not on file 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
--- OUTSIDE RECORDS SUMMARY | 2025-06-06 17:49 | XMS_ITS | Encounter Summary ---
Author Organization [facility] Address [address] [place] [address] Care Team Providers Care Tree Trimming Line Technician Name Role Phone Chidi Araya MD Primary Care Provider [phone] [phone] Encounter Details Date Type Department Care Team (Late st Contact Info) Description 10/02/2003 Outpatient Historical [facility] [address] [place] [address] [place] [address] [place] [address] [facility] [address] [place] [address] LUMBAGO (Primary Dx) Social History Tobacco Use Types Packs/Day Years Used Date Smoking Tobacco: Never Assessed Comments Unknown Sex and Gender Information Value Date Recorded Sex Assigned at Not on file 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
--- OUTSIDE RECORDS SUMMARY | 2025-06-06 17:49 | XMS_ITS | Encounter Summary ---
Author Organization [facility] Address [address] [place] [address] Care Team Providers Care Hatchery Man Name Role Phone Chidi Araya MD Primary Care Provider +1 [phone] Encounter Details Date Type Department Care Team (Latest Contact Info) Description 06/09/2004 Outpatient Historical [facility] Medicine [place] [employer] [address] [address] Chalino Rivas DO NO ADDRESS ON FILE BACKACHE NOS (Primary Dx); ABDOMINAL PAIN UNSPEC SITE Social History Tobacco Use Types Packs/Day Years Used Date Smoking Tobacco: Never Assessed Comments Unknown Sex and Gender Information Value Date Recorded Sex Assigned at Not on file Legal Sex Female 5: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
--- OUTSIDE RECORDS SUMMARY | 2025-06-06 17:49 | XMS_ITS | Encounter Summary ---
Author Organization [facility] Address [address] [place] [address] Care Team Providers Care Hedge Fund Manager Name Role Phone Chidi Araya MD Primary Care Provider +1 [phone] Encounter Details Date Type Department Care Team (Latest Contact Info) Description 11/12/2003 Outpatient Historical [facility] Medicine [place] [address] [address] Chalino Rivas DO NO ADDRESS ON FILE LUMBAGO (Primary Dx) Social History Tobacco Use Types Packs/Day Years Used Date Smoking Tobacco: Never Assessed Comments Unknown Sex and Gender Information Value Date Recorded Sex Assigned at Not on file Legal Sex Female 5:06 AM CONTRACTS REPRESENTATIVE Gender Identity Not on file Sexual Orientation Not on file documented as of this encounter Plan of Treatment Not on file documented as of this encounter Visit Diagnoses Diagnosis Lumbago- Primary documented in this encounter Care Teams Hedge Fund Manager Relationship Specialty Start Date End Date Chidi Araya MD [address] [address] PCP - General Family Practice 09/22/20 documented as of this encounter
--- OUTSIDE RECORDS SUMMARY | 2025-06-06 17:50 | XMS_ITS | Encounter Summary ---
Author Organization [facility] Address [address] [place] [address] Care Team Providers Care Business Continuity Management Director Name Role Phone Chidi Araya MD Primary Care Provider +1 [phone] Encounter Details Date Type Department Care Team (Late st Contact Info) Description 08/07/2003 Outpatient Historical [facility] [address] [place] [address] [facility] [address] [place] [address] [place] [address] [facility] [address] [place] [address] LUMBAGO (Primary Dx) Social History Tobacco Use Types Packs/Day Years Used Date Smoking Tobacco: Never Assessed Comments Unknown Sex and Gender Information Value Date Recorded Sex Assigned at Not on file Legal Sex Female 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
--- OUTSIDE RECORDS SUMMARY | 2025-06-06 17:50 | XMS_ITS | Encounter Summary ---
Author Organization [facility] Address [address] [place] [address] Care Team Providers Care Solids Control Technician Name Role Phone Chidi Araya MD Primary Care Provider +1 [phone] Encounter Details Date Type Department Care Team (Latest Contact Info) Description 02/26/2002 Outpatient Historical [facility] Medicine [address] [address] Chalino Rivas DO NO ADDRESS ON FILE BRIEF DEPRESSIVE REACT (Primary Dx) Social History Tobacco Use Types Packs/Day Years Used Date Smoking Tobacco: Never Assessed Comments Unknown Sex and Gender Information Value Date Recorded Sex Assigned at Not on file Legal Sex Female 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
--- OUTSIDE RECORDS SUMMARY | 2025-06-06 17:50 | XMS_ITS | Patient Health Record ---
Author Organization [facility] Address [address] [facility] [place] [address] Care Team Providers Care Framing Mill Operator Helper Name Role Phone Krishna Valdovinos [phone] Allergies Allergen (clinical drug ingredient) Drug/Non Drug Allergy documented on EMR Reaction Allergy Type Onset Date Status cefaclor Cefaclor Unknown Drug Allergy 12/03/2004 Active Reason For Referral No Information Medications Medication SIG (Take, Route, Frequency, Duration) Notes Start Date End Date Status PARoxetine HCl 20 MG Tablet Take 1 table t(s) by mouth daily Oral; Duration: 30 05/14/2013 Active Calcium + D3 600-800 MG-UNIT Tablet 1 tablet with a meal Orally Three times daily; Duration: 30 day(s) Active Simvastatin 20 MG Tablet Take 1 tablet(s ) by mouth at bedtime Oral; Duration: 30 06/11/2013 Active Glucosamine HCl-MSM Active Immunizations Vaccine Route Administration Date Status Comme nts Flu vaccine no Preserv 3 and > Unknown 04/17/2013 Admin istered Problems Problem Type SNOMED Code ICD Code Onset Dates Problem Status W/U Status Risk Notes Problem Moderate recurrent major depression (12041506) Major depressive disorder, recurrent, moderate (F33.1) Active confirmed Problem Pure hypercholesterolemia (315342375) Pure hypercholesterolemia , unspecified (E78.00) Active confirmed Problem Hypercholesterolemia (33315533) Hypercholesterolemia (272.0) 2011 Active confirmed [id number]- Problem Moderate recurrent major depression (26195839) Major depression, recurrent episode, moderate (296.32) 2009 Active confirmed [id number]- Problem Postmenopausal osteoporosis (868411473) Postmenopausal osteoporosis (733.01) 2012 Active confirmed [id number]- Problem Generalized anxiety disorder (30162806) Generalized anxiety disorder (300.02) 2008 Problem resolved confirmed [id number]- Problem Obstructive sleep apnea syndrome (58043791) Obstructive sleep apnea (adult) (pediatric) (327.23) 2017 Problem resolved confirmed [id number]- Problem Constipation (84183674) Other constipation (564.09) 2005 Problem resolved confirmed [id number]- Problem Dysphagia (63674548) Dysphagia, unspecified (787.20) 2017 Problem resolved confirmed [id number]- Problem Urinary frequency (432835495) Urinary frequency (788.41) 2004 Problem resolved confirmed [id number]- Problem Hormone replacement therapy (984188882) Hormone replacement therapy (postmenopausal) (V07.4) 2009 Problem resolved confirmed [id number]- Problem Restless legs (44849197) Restless legs syndrome (RLS) (333.94) 2009 Problem resolved confirmed [id number]- Problem Rash (028391774) Rash (782.1) 2012 Problem resolved confirmed [id number]- Problem Depression (400022285) Depression (311) 2005 Problem resolved confirmed [id number]- Problem Low back pain (701569233) Low back pain (724.2) 2015 Problem resolved confirmed [id number]- Problem Neck pain (11429737) Neck pain (723.1) 2017 Problem resolved confirmed [id number]- Problem Vitamin D deficiency (91440634) Vitamin D deficiency (268.9) 2012 Problem resolved confirmed [id number]- Problem Vaginal irritation (750800918) Vaginal irritation (623.9) 2018 Problem resolved confirmed [id number]- Problem Screening for breast cancer (805181495) Screening for breast cancer (V76.10) 2011 Problem resolved confirmed [id number]- Problem Generalized osteoarthritis (554304805) Generalized osteoarthritis, multiple sites (715.09) 2018 Problem resolved confirmed [id number]- Problem Hand pain (89681520) Hand pain (729.5) 2010 Problem resolved confirmed [id number]- Problem Elevated levels of transaminase & lactic acid dehydrogenase (146660648) Elevated SGOT (AST) (790.4) 2012 Problem resolved confirmed [id number]- Problem Hypotension (84424886) Hypotension (458.8) 2009 Problem resolved confirmed [id number]- Problem Breast examination (07963945) Screening breast exam - other (V76.19) 2005 Problem resolved confirmed [id number]- Problem General examination of patient (269137281) Annual exam (V70.0) 2009 Problem resolved confirmed [id number]- Problem Needs influenza immunization (904620912) Vaccination against other viral diseases, Influenza (V04.81) 2012 Problem resolved confirmed [id number]- Problem Candidiasis (88517000) Yeast infection (112.9) 2018 Problem resolved confirmed [id number]- Problem Acute upper respiratory infection (77417478) Acute upper respiratory infection (465.8) 2006 Problem resolved confirmed [id number]- Problem Thyroid function tests abnormal (769589158) Abnormal thyroid findings (794.5) 2012 Problem resolved confirmed [id number]- Problem Chronic low back griselda n (742085269) Chronic low back pain (724.2) 2009 Problem resolved confirmed [id number]- Problem Neoplasm of digestiv e system (504624691) Colon polyps (239.0) 2015 Problem resolved confirmed [id number]- Problem Toothache (21199797) Toothache (525.9) 2005 Problem resolved confirmed [id number]- Problem Benign hematuria (01933450) Benign hematuria (599.7) 2004 Problem resolved confirmed [id number]- Problem 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 Problem resolved confirmed [id number]- Problem Finger pain (86649595) Finger pain (729.5) 2008 Problem resolved confirmed [id number]- Problem Nausea (716686367) Nausea (787.02) 2004 Problem resolved confirmed [id number]- Problem Toothache (finding) (17527283) Tooth pain (525.9) 2005 Problem resolved confirmed [id number]- Problem Wasp sting (831534896) Wasp sting (E905.3) 2010 Problem resolved confirmed Michael-[id number]- Problem Screening for malignant neoplasm of breast (189810734) Screening for breast cancer, unspecified (V76.10) 2016 Problem resolved confirmed [id number]- Problem Screening mammograph y (61198001) Screening mammogram - other (V76.12) 2018 Problem resolved confirmed [id number]- Plan Of Treatment No Information Insurance Providers Payer Name Payer Address Payer Phone Subscriber Number Group Number Insured Name Patient Relationship to Insured Coverage Start Date Coverage End Date for Life Secondary to Medicare [address] [place] [address] [phone] [id number] Sobia Avila Self - patient is the insured Medical (General) History Medical History History ICD Code Hyperlipidemia Osteoporosis DepressionGAD PREVENTIVE HEALTH MAINTENANCE COLONOSCOPY: was last done with normal results INFLUENZA VACCINE: was last done 04/17/13 Hep C Screening: was last done 04/18/12 with negative results PNEUMOCOCCAL VACCINE: was last done TETANUS VACCINE: was last done dtap Surgical History Surgery Date(Month/Year) Hysterectomy: 2004; complete; Laminectom y: lumbar region;
--- OUTSIDE RECORDS SUMMARY | 2025-06-06 17:50 | XMS_ITS | Encounter Summary ---
Author Organization [facility] Address [address] [place] [address] Care Team Providers Care Ply Splicer Name Role Phone Chidi Araya MD Primary Care Provider +1 [phone] Encounter Details Date Type Department Care Team (Latest Contact Info) Description 01/29/2002 Outpatient Historical [facility] Medicine [place] [address] [address] Chalino Rivas DO NO ADDRESS ON FILE HYPERLIPIDEMIA NEC/NOS (Primary Dx) Social History Tobacco Use Types Packs/Day Years Used Date Smoking Tobacco: Never Assessed Comments Unknown Sex and Gender Information Value Date Recorded Sex Assigned at Not on file Legal Sex Female 5: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
--- OUTSIDE RECORDS SUMMARY | 2025-06-06 17:50 | XMS_ITS | Encounter Summary ---
Author Organization [facility] Address [address] [place] [address] Care Team Providers Care Excel Expert Name Role Phone Chidi Araya MD Primary Care Provider +1 -[phone] Encounter Details Date Type Department Care Team (Latest Contact Info) Description 07/01/1999 Outpatient Historical [facility] Medicine [place] [address] [address] Winnie Iqbal NO ADDRESS ON FILE Sprain lumbosacral (Primary Dx); Myalgia and myositis, unspecified; Nonallopathic lesion of thoracic region, not elsewhere classified Social History Tobacco Use Types Packs/Day Years Used Date Smoking Tobacco: Never Assessed Comments Unknown Sex and Gender Information Value Date Recorded Sex Assigned at Not on file Legal Sex Female 5:06 AM REIMBURSEMENT 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 Gender Identity Not on file Sexual Orientation Not on file documented as of this encounter Plan of Treatment Not on file documented as of this encounter Visit Diagnoses Diagnosis Sprain lumbosacral- Primary Sprain of lumbosacral (joint) (ligament) Myalgia and myositis, unspecified Mylagia and myositis, unspecified Nonallopathic lesion of thoracic region, not elsewhere classified documented in this encounter Care Teams Excel Expert Relationship Specialty Start Date End Date Chidi Araya MD [address] [address] PCP - General Family Practice 09/22/20 documented as of this encounter
--- OUTSIDE RECORDS SUMMARY | 2025-06-06 17:50 | XMS_ITS | Encounter Summary ---
Author Organization [facility] Address [address] [place] [address] Care Team Providers Care Log Cooker Name Role Phone Chidi Araya MD Primary Care Provider +1 -[phone] Encounter Details Date Type Department Care Team (Latest Contact Info) Description 07/15/1999 Outpatient Historical [facility] Medicine [place] [address] [address] Winnie Iqbal NO ADDRESS ON FILE Lumbago (Primary Dx); Nonallopathic lesion of pelvic region, not elsewhere classified; Nonallopathic lesion of sacral region, not elsewhere classified Social History Tobacco Use Types Packs/Day Years Used Date Smoking Tobacco: Never Assessed Comments Unknown Sex and Gender Information Value Date Recorded Sex Assigned at Not on file Legal Sex Female 5:06 AM 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
--- OUTSIDE RECORDS SUMMARY | 2025-06-06 17:50 | XMS_ITS | Encounter Summary ---
Author Organization [facility] Address [address] [place] [address] Care Team Providers Care Apprentice Painter Brush Name Role Phone Chidi Araya MD Primary Care Provider +1 -[phone] Encounter Details Date Type Department Care Team (Latest Contact Info) Description 02/22/2000 Outpatient Historical [facility] Family Medicine- [address] [place] [address] Winnie Iqbal NO ADDRESS ON FILE Sprain lumbosacral (Primary Dx); Nonallopathic lesion of abdomen and other sites, not elsewhere classified; Nonallopathic lesion of lumbar region, not elsewhere classified; Nonallopathic lesion of sacral region, not elsewhere classified Social History Tobacco Use Types Packs/Day Years Used Date Smoking Tobacco: Never Assessed Comments Unknown Sex and Gender Information Value Date Recorded Sex Assigned at Not on file Legal 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 Female 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 Gender Identity Not on file Sexual Orientation Not on file documented as of this encounter Plan of Treatment Not on file documented as of this encounter Visit Diagnoses Diagnosis Sprain lumbosacral- Primary Sprain of lumbosacral (joint) (ligament) Nonallopathic lesion of abdomen and other sites, not elsewhere classified Nonallopathic lesion of lumbar region, not elsewhere classified Nonallopathic lesion of sacral region, not elsewhere classified documented in this encounter Care Teams Apprentice Painter Brush Relationship Specialty Start Date End Date Chidi Araya MD [address] [facility] [address] [place] [address] PCP - General Family Practice 09/22/20 documented as of this encounter
--- OUTSIDE RECORDS SUMMARY | 2025-06-06 17:50 | XMS_ITS | Encounter Summary ---
Author Organization [facility] Address [address] [place] [address] Care Team Providers Care Flooring Machine Operator Name Role Phone Chidi Araya MD Primary Care Provider +1 -[phone] Encounter Details Date Type Department Care Team (Latest Contact Info) Description 04/24/1998 Outpatient Historical [facility] Medicine [address] [phone] Gurinder Lucero, DO [address] [place] [address] Pain in limb (Primary Dx) Social History Tobacco Use Types Packs/Day Years Used Date Smoking Tobacco: Never Assessed Comments Unknown Sex and Gender Information Value Date Recorded Sex Assigned at Not on file Legal Sex Female 5:06 AM SUPPORT SERVICES MANAGER Gender Identity Not on file Sexual Orientation Not on file documented as of this encounter Plan of Treatment Not on file documented as of this encounter Visit Diagnoses Diagnosis Pain in limb- Primary Pain in soft tissues of limb documented in this encounter Care Teams Flooring Machine Operator Relationship Specialty Start Date End Date Chidi Araya MD [address] [phone] PCP - General Family Practice 09/22/20 documented as of this encounter
--- OUTSIDE RECORDS SUMMARY | 2025-06-06 17:50 | XMS_ITS | Encounter Summary ---
Author Organization [facility] Address [address] [place] [address] Care Team Providers Care Organizational Effectiveness Director Name Role Phone Chidi Araya MD Primary Care Provider +1 -[phone] Encounter Details Date Type Department Care Team (Latest Contact Info) Description 12/18/2001 Outpatient Historical [facility] Medicine [place] [address] [address] Chalino Rivas DO NO ADDRESS ON FILE HYPERLIPIDEMIA NEC/NOS (Primary Dx) Social History Tobacco Use Types Packs/Day Years Used Date Smoking Tobacco: Never Assessed Comments Unknown Sex and Gender Information Value Date Recorded Sex Assigned at Not on file Legal Sex Female 5:06 AM HONE OPERATOR Gender Identity Not on file Sexual Orientation Not on file documented as of this encounter Plan of Treatment Not on file documented as of this encounter Visit Diagnoses Diagnosis Other and unspecified hyperlipidemia- Primary documented in this encounter Care Teams Organizational Effectiveness Director Relationship Specialty Start Date End Date Chidi Araya MD [address] [address] PCP - General Family Practice 09/22/20 documented as of this encounter
--- OUTSIDE RECORDS SUMMARY | 2025-06-06 17:50 | XMS_ITS | Data Portability ---
Author Organization GUTIERREZ Seaman [facility] ReadingShanelle, [facility] Address [address] [address] Assessment Encounter Date Assessment Date Assessment LastModified by Organization Details LastModified Time 04/26/2024 04/26/2024 Patient only wanted mammo today. No visit completed. no charge visit [email or web address] Not available 06/08/2024 12:15:36 Plan of Treatment Reminders Order Date Submit Date Provider Last Modified By Organization Details Last Modified Time Details Appointments None recorded. Lab CBC w/ auto diff [email or web address] [place] [address] Lab, [address], [facility] [[email or web address] 1, [place], [address], 5 16:39:49 vitamin D, 25-hydroxy, total, serum 2024 025 [facility], [address], [facility] [[email or web address] 1, [place], [address], 5 04:47:35 lipid panel, blood 2024 025 [facility], [address], [address], [place], [address], 5 13:03:39 CMP, serum or plasma 2024 025 [facility], [address], [facility] [[email or web address] 1, [place], [address], 5 13:03:35 lipid panel, blood 2023 024 Counts include 234 beds at the [facility] Lab, [address] [facility], [address], [place], [address], 4 12:20:20 CMP, serum or plasma 2023 024 Counts include 234 beds at the [facility] Lab, [address], [facility] [[email or web address] 1, [place], [address], 4 12:20:17 CBC w/ auto diff 2023 024 [email or web address] Lab, [address] [facility], [facility] [[email or web address] 1, [place], [address], 4 08:34:18 vitamin D, 25-hydroxy, total, serum 2023 024 [facility], [address] [facility] , [address], [address], 4 08:00:20 TSH, serum or plasma 2023 024 [facility] ([facility]), [address] [place], [address], 4 11:48:31 Referral None recorded. Procedures None recorded. Surgeries None recorded. Imaging None recorded. Medication Orders paroxetine 30 mg tablet 2024 025 [facility], [address], [place], [address], 5 11:36:15 simvastatin 20 mg tablet 2024 025 [facility], [address], [place], [address], 5 10:38:09 paroxetine 20 mg tablet 2024 025 [facility], [address], [place], [address], 5 10:38:07 simvastatin 20 mg tablet 2023 024 [facility], [address], [place], [address], 4 10:21:16 paroxetine 20 mg tablet 2023 024 [facility], [address], [place], [address], 10:21:17 Patient TargetsNo targets recorded. Patient InstructionsNo instructions recorded. Reason for Referral None Reported. Results Created Date Observation Date Name Description Value Unit Range Abnormal Flag Note LastModifiedBy Organization Detail LastModifiedTime 11/21/1911/21/2023 CBC WBC 5.4 x10 4.0-10 .5 Not Available [facility] [address], [place], [address], 11/21/2023 11:33:16 11/21/19 24 11/21/2023 CBC RBC 4.74 x10 3.50-5 .50 Not Available [facility] [address] [facility] [[email or web address]] 1, [place], [address], 11/21/2023 11:33:16 11/21/19 24 11/21/2023 CBC HGB 15.2 g/dL 12.0-1 6.0 Not Available [facility] [address], [place], [address], 11/21/2023 11:33:16 11/21/19 24 11/21/2023 CBC HCT 45.1 % 37.0-4 7.0 Not Available [facility] [address], [place], [address], 11/21/2023 11:33:16 11/21/19 24 11/21/2023 CBC MCV 95.2 fL 80.0-9 9.9 Not Available [facility] [address] [facility] [[email or web address]] 1, [place], [address], 11/21/2023 11:33:16 11/21/19 24 11/21/2023 CBC MCH 32.1 pg 27.0-3 2.0 high Not Available [facility] [address] [facility] [[email or web address] 1, [place], [address], 11/21/2023 11:33:16 11/21/19 24 11/21/2023 CBC MCHC 33.7 g/dL 32.0-3 6.0 Not Available [facility] [address] [facility], [place], [address], 11/21/2023 11:33:16 11/21/19 24 11/21/2023 CBC RDW 13.7 % 11.5-1 4.5 Not Available [facility] [address] [facility] [[email or web address]] 1, [place], [address], 11/21/2023 11:33:16 11/21/19 24 11/21/2023 CBC plt 250.0 x10 140.0- 451.0 Not Available [facility] [address] [facility] [[email or web address]] 1, [place], [address], 11/21/2023 11:33:16 11/21/19 24 11/21/2023 CBC lymphocytes % 27.7 % 20.0-5 0.0 Not Available [facility] [address] [facility] [[email or web address] 1, [place], [address], 11/21/2023 11:33:16 11/21/19 24 11/21/2023 CBC granulcytes % 63.4 % 30.0-7 0.0 Not Available [facility] [address] [facility] 1, [place], [address], 11/21/2023 11:33:16 11/21/19 24 11/21/2023 CBC monocytes % 6.7 % 2.0-10 .0 Not Available [facility] [address] [facility] 1, [place], [address], 11/21/2023 11:33:16 11/21/19 24 11/21/2023 CBC granulcytes# 3.4 x10 Not Ailin ilable [facility] [address] [address], [place], [address], 11/21/2023 11:33:16 11/21/19 24 11/21/2023 CBC lymphocytes # 1.5 x10 Not Available [facility] [address] [address], [place], [address], 11/21/2023 11:33:16 11/21/19 24 11/21/2023 CBC monocytes # 0.4 x10 Not Avai lable [facility] [address] [address], [place], [address], 11/21/2023 11:33:16 11/21/19 24 11/21/2023 CMP (FEMA LE) glucose 96.0 mg/dL 60.0-9 9.0 Not Available [facility] [address] [address], [place], [address], 11/21/2023 12:20:17 11/21/19 24 11/21/2023 CMP (FEMA LE) BUN (blood urea nitrogen) 11.0 mg/dL 10.0-2 6.0 Not Available [facility] [address] [address], [place], [address], 11/21/2023 12:20:17 11/21/19 24 11/21/2023 CMP (FEMA LE) creatinine (serum) 0.9 mg/dL 0.4-1. 5 Not Available [facility] [address] [facility] 1, [place], [address], 11/21/2023 12:20:17 11/21/19 24 11/21/2023 CMP (FEMA LE) BUN/creatini ne ratio 11.83 ratio Not Available [facility] [address] [facility], [place], [address], 11/21/2023 12:20:17 11/21/19 24 11/21/2023 CMP (FEMA LE) eGFR calculated 63.5 Not Available [facility] [address] [facility] [address], [place], [address], 11/21/2023 12:20:17 11/21/19 24 11/21/2023 CMP (FEMA LE) total protein 7.4 g/dL 6.0-8. 5 Not Available [facility] [address] [facility] [address], [place], [address], 11/21/2023 12:20:17 11/21/19 24 11/21/2023 CMP (FEMA LE) total bilirubin 1.6 mg/dL 0.2-1. 3 high Not Available [facility] [address] [facility] [address], [place], [address], 11/21/2023 12:20:17 11/21/19 24 11/21/2023 CMP (FEMA LE) albumin 4.5 g/dL 3.5-5. 5 Not Available [facility] [address] [facility] [address], [place], [address], 11/21/2023 12:20:17 11/21/19 24 11/21/2023 CMP (FEMA LE) globulin 2.9 calc Not Available [facility] [place] [facility] [address] [facility] [address], [place], [address], 11/21/2023 12:20:17 11/21/19 24 11/21/2023 CMP (FEMA LE) AST (SGOT) 30.0 U/L 0.0-46 .0 Not Available [facility] [address] [facility], [place], [address], 11/21/2023 12:20:17 11/21/19 24 11/21/2023 CMP (FEMA LE) altv (SGPT) 19.0 U/L 13.0-6 9.0 normal Not Available [facility] [address] [facility] 1, [place], [address], 11/21/2023 12:20:17 11/21/19 24 11/21/2023 CMP (FEMA LE) A/G ratio 1.6 ratio Not Available [facility] [address] [facility] 1, [place], [address], 11/21/2023 12:20:17 11/21/19 24 11/21/2023 CMP (FEMA LE) ALP phos 66.0 U/L 30.0-1 40.0 normal Not Available [facility] [address] [facility] 1, [place], [address], 11/21/2023 12:20:17 11/21/19 24 11/21/2023 CMP (FEMA LE) calcium 9.3 mg/dL 8.4-10 .5 Not Available [facility] [address] [facility] 1, [place], [address], 11/21/2023 12:20:17 11/21/19 24 11/21/2023 CMP (FEMA LE) sodium 141.0 mmol/ L 136.0- 145.0 Not Available [facility] [address] [facility] 1, [place], [address], 11/21/2023 12:20:17 11/21/19 24 11/21/2023 CMP (FEMA LE) potassium 4.4 mmol/ L 3.5-5. 1 Not Available [facility] [address] [facility], [place], [address], 11/21/2023 12:20:17 11/21/19 24 11/21/2023 CMP (FEMA LE) chloride 109.0 mmol/ L 98.0-1 10.0 normal Not Available [facility] [address] [facility] 1, [place], [address], 11/21/2023 12:20:17 11/21/19 24 11/21/2023 CMP (FEMA LE) C02 27.0 mmol/ L 22.0-3 1.0 Not Available [facility] [address] [facility] 1, [place], [address], 11/21/2023 12:20:17 11/21/19 24 11/21/2023 CMP (FEMA LE) anion gap 5.0 calc Not Available [facility] [address] [facility] 1, [place], [address], 11/21/2023 12:20:17 11/21/19 24 11/21/2023 CMP (FEMA LE) osmolality 290.5 calc Not Available [facility] [address] [facility] 1, [place], [address], 11/21/2023 12:20:17 11/21/19 24 11/21/2023 LIPID PROFI LE (FEMA LE) cholesterol 212.0 mg/dL 0.0-20 0.0 high Not Available [facility] [address] [facility] 1, [place], [address], 11/21/2023 12:20:20 11/21/19 24 11/21/2023 LIPID PROFI LE (FEMA LE) trig 151.0 mg/dL 0.0-15 0.0 high Not Available [facility] [address] [facility] [address], [place], [address], 11/21/2023 12:20:20 11/21/19 24 11/21/2023 LIPID PROFI LE (FEMA LE) HDL - direct 75.0 mg/dL >40.0 Not Available [facility] [address] [facility] [address], [place], [address], 11/21/2023 12:20:20 11/21/19 24 11/21/2023 LIPID PROFI LE (FEMA LE) VLDL - direct 30.2 mg/dL Not Available [facility] [address] [facility] [address], [place], [address], 11/21/2023 12:20:20 11/21/19 24 11/21/2023 LIPID PROFI LE (FEMA LE) LDL - direct 106.8 mg/dL 0.0-13 0.0 Not Available [facility] [address] [facility] [address], [place], [address], 11/21/2023 12:20:20 11/21/19 24 11/22/2023 VITAM IN D,25- OH,TO SAFIA,I A vitamin D,25-oh,tota l,ia 24 NG/mL 30-100 low Vitam in D Statu s 25-OH Vitam [...] /MS is recom tanmay d: order code 17085 (priyanka ents >2yrs ). See Note 1 Note 1 For addit ional infor sandra garcia e refer to http: //joao diaz.Que stDia gnost ics.c om/fa q/FAQ 199 (This link is being provi ded for infor king singletary/ educcholo toussaint purpo ses only. ) Not Available [facility] [address] , [place], [address], 11/22/2023 08:00:20 11/21/19 24 11/21/2023 TSH, serum or plasm a TSH 2.92 uIU/m L 0.49-3 .82 normal Not Available [facility] ([facility]) [address] [place], [address], 11/21/2023 10:15:12 01/23/20 25 01/22/2025 COLOG UARD cologuard result reportable NEGATI VE negati ve normal The Colog uard (TM) test was perfo rmed on this speci men. NEGAT LISA TEST RESUL T. A negat lisa Colog uard resul t indic ates a low likel ihood that a color ectal cance r (CRC) or advan ricky adeno ma (natalia omato us polyp s with more advan ricky pre-m align ant featu res) is prese nt. The nemours foundation e that a perso n with a negat lisa Colog uard test has a color ectal cance r is less than 1 in 1500 (nega tive predi ctive value >99.9 %) or has an advan ricky adeno ma is less than 5.3% (nega tive predi ctive value 94.7% ). These data are based on a prosp ectiv e cross -sect ional study of 10,00 0 indiv idual s at [place] risk for color ectal cance r who were scree robbin with both Colog uard and colon oscop y. (Evelyn Harden al, N Engl J Med 2014; 370(1 4):12 86-12 97) The joey l value (refe rence range ) for this assay is negat lisa. COLOG UARD RE-SC REENI NG RECOM MENDA TION: Perio dic color ectal cance r scree igor is an impor tant part of preve ntive healt hcare for asymp tomat ic indiv idual s at [facility] risk for color ectal cance r. Follo wing a negat lisa Colog uard resul t, the Ameri can Cance r Socie ty and U.S. Multi -Soci ety Task Force scree igor guide lines recom mend a Colog uard re-sc reenestor ng inter william of 3 years . Refer ences : Ameri can Cance r Socie ty Guide line for Color ectal Cance r Scree igor: https ://cate w.can cer.o rg/ca ncer/ colon -rect al-ca ncer/ detec tion- diagn osis- stagi ng/ac s-rec ommen datio ns.ht ml.; Dean GALLAGHER, Melissa RODRIGUEZ, Winter MARTINEZ, Color ectal Cance r Scree igor: Recom menda tions for Physi cians and Patie nts from the U.S. Multi -Soci ety Task Force on Color ectal Cance r Scree igor , Am J Gastr clarkente rolog y 2017; 112:1 016-1 030. TEST DESCR IPTIO N: Montier site algor ithmi c shin sis of stool DNA-b iorenan kers with hemog lobin immun oassa y. Quant itati ve value s of indiv idual bioma rkers are not repor table and are not assoc iated with indiv idual bioma rker resul t refer ence range s. Colog uard is inten ded for color ectal cance r scree igor of adult s of eithe r sex, 45 years or older , who are at [facility] for color ectal cance r (CRC) . Colog uard has been appro suzanne for use by the U.S. FDA. The perfo rmanc e of Colog uard was estab lishe d in a cross secti onal study of [facility] adult s aged 50-84 . Colog uard perfo rmanc e in patie nts ages 45 to 49 years was estim ated by sub-g roup shin sis of near- age group s. Colon oscop ies perfo rmed for a posit lisa resul t may find as the most clini love signi ficcassidy t lesio n: color ectal cance r [4.0% ], advan ricky adeno ma (incl uding sessi le zach ave polyp s great er than or equal to 1cm diame ter) [20%] or non- advan ricky adeno ma [31%] ; or no color ectal neopl hilda [45%] . These estim ates are deriv ed from a prosp ectiv e cross -sect ional scree igor study of 0 indiv idual s at [facility] risk for color ectal cance r who were scree robbin with both Colog uard and colon oscop y. (Evelyn Maddox et al, N Engl J Med 2014; 370(1 4):12 86-12 97.) Colog uard may produ ce a false negat lisa or false posit lisa resul t (no color ectal cance r or preca ncero us polyp prese nt at colon oscop y follo w up). A negat lisa Colog uard test resul t does not guara ntee the absen ce of CRC or advan ricky adeno ma (pre- cance r). The curre nt Colog uard scree igor inter william is every 3 years . (Amer ican Cance r Socie ty and U.S. Multi -Soci ety Task Force ). Colog uard perfo rmanc e data in a 0 patie nt pivot al study using colon oscop y as the refer ence metho d can be acces sed at the follo wing locat ion: www.e xactl abs.c om/re ivon . Addit ional descr iptio n of the Colog uard test proce ss, warni ngs and preca ution s can be found at www.c maggie guerrerod.c om. Not Available [employer] [address], [place], [address], 01/28/2025 18:46:08 05/28/20 25 05/28/2025 CBC WBC 4.8 x10 4.0-10 .5 Not Available [facility] [address] [facility] [[email or web address] 1, [place], [address], 05/28/2025 12:53:34 05/28/20 25 05/28/2025 CBC RBC 4.53 x10 3.50-5 .50 Not Available [facility] [address] [facility] [[email or web address] 1, [place], [address], 05/28/2025 12:53:34 05/28/20 25 05/28/2025 CBC HGB 14.7 g/dL 12.0-1 6.0 Not Available [facility] [address] [facility] [[email or web address] 1, [place], [address], 05/28/2025 12:53:34 05/28/20 25 05/28/2025 CBC HCT 44.3 % 37.0-4 7.0 Not Available [facility] [address] [facility] [[email or web address] 1, [place], [address], 05/28/2025 12:53:34 05/28/20 25 05/28/2025 CBC MCV 97.9 fL 80.0-9 9.9 Not Available [facility] [address] [facility] [[email or web address] 1, [place], [address], 05/28/2025 12:53:34 05/28/20 25 05/28/2025 CBC MCH 32.4 pg 27.0-3 2.0 high Not Available [facility] [address] [facility] [[email or web address] 1, [place], [address], 05/28/2025 12:53:34 05/28/20 25 05/28/2025 CBC MCHC 33.1 g/dL 32.0-3 6.0 Not Available [facility] [address] [facility] [[email or web address] 1, [place], [address], 05/28/2025 12:53:34 05/28/20 25 05/28/2025 CBC RDW 13.2 % 11.5-1 4.5 Not Available [facility] [address] [facility] [[email or web address] 1, [place], [address], 05/28/2025 12:53:34 05/28/20 25 05/28/2025 CBC plt 221.2 x10 140.0- 451.0 Not Available [facility] [address] [facility], [place], [address], 05/28/2025 12:53:34 05/28/20 25 05/28/2025 CBC lymphocytes % 34.9 % 20.0-5 0.0 Not Available [facility] [address] [address], [place], [address], 05/28/2025 12:53:34 05/28/20 25 05/28/2025 CBC granulcytes % 55.3 % 30.0-7 0.0 Not Available [facility] [address] [facility] 1, [place], [address], 05/28/2025 12:53:34 05/28/20 25 05/28/2025 CBC monocytes % 7.2 % 2.0-16 .0 Not Available [facility] [address] [facility], [place], [address], 05/28/2025 12:53:34 05/28/20 25 05/28/2025 CBC granulcytes# 2.6 x10 Not Ailin ilable [facility] [address] [facility] 1, [place], [address], 05/28/2025 12:53:34 05/28/20 25 05/28/2025 CBC lymphocytes # 1.7 x10 Not Available [facility] [address] [address], [place], [address], 05/28/2025 12:53:34 05/28/20 25 05/28/2025 CBC monocytes # 0.3 x10 Not Avai lable [facility] [address] [facility], [place], [address], 05/28/2025 12:53:34 05/28/20 25 05/28/2025 CMP (FEMA LE) glucose 103.0 mg/dL 60.0-9 9.0 high Not Available [facility] [address] [facility] [address], [place], [address], 05/28/2025 13:03:35 05/28/20 25 05/28/2025 CMP (FEMA LE) BUN (blood urea nitrogen) 11.0 mg/dL 10.0-2 6.0 Not Available [facility] [address] [facility] [address], [place], [address], 05/28/2025 13:03:35 05/28/20 25 05/28/2025 CMP (FEMA LE) creatinine (serum) 1.0 mg/dL 0.4-1. 5 Not Available [facility] [address] [facility] [address] [address], [place], [address], 05/28/2025 13:03:35 05/28/20 25 05/28/2025 CMP (FEMA LE) BUN/creatini ne ratio 11.00 ratio Not Available [facility] [address] [facility] [address], [place], [address], 05/28/2025 13:03:35 05/28/20 25 05/28/2025 CMP (FEMA LE) eGFR calculated 58.3 Not Available [facility] [address] [facility] [address] [address], [place], [address], 05/28/2025 13:03:35 05/28/20 25 05/28/2025 CMP (FEMA LE) total protein 7.3 g/dL 6.0-8. 5 Not Available [facility] [address] [place] [facility], [place], [address], 05/28/2025 13:03:35 05/28/20 25 05/28/2025 CMP (FEMA LE) total bilirubin 1.5 mg/dL 0.2-1. 3 high Not Available [facility] [address] [facility], [place], [address], 05/28/2025 13:03:35 05/28/20 25 05/28/2025 CMP (FEMA LE) albumin 4.5 g/dL 3.5-5. 5 Not Available [facility] [address] [facility] [address], [place], [address], 05/28/2025 13:03:35 05/28/20 25 05/28/2025 CMP (FEMA LE) globulin 2.8 calc Not Available [facility] [place] [facility] [address] [facility] 1, [place], [address], 05/28/2025 13:03:35 05/28/20 25 05/28/2025 CMP (FEMA LE) AST (SGOT) 26.0 U/L 0.0-46 .0 Not Available [facility] [address] [facility] [address], [place], [address], 05/28/2025 13:03:35 05/28/20 25 05/28/2025 CMP (FEMA LE) altv (SGPT) 16.0 U/L 13.0-6 9.0 normal Not Available [facility] [address] [facility] Lindsay [facility] [[email or web address] 1, [place], [address], 05/28/2025 13:03:35 05/28/20 25 05/28/2025 CMP (FEMA LE) A/G ratio 1.6 ratio Not Available [facility] [address] [facility] 1, [place], [address], 05/28/2025 13:03:35 05/28/2005/28/2025 CMP (FEMA LE) ALP phos 64.0 U/L 30.0-1 40.0 normal Not Available [facility] [address] [facility] 1, [place], [address], 05/28/2025 13:03:35 05/28/20 25 05/28/2025 CMP (FEMA LE) calcium 9.0 mg/dL 8.4-10 .5 Not Available [facility] [address] [facility] 1, [place], [address], 05/28/2025 13:03:35 05/28/20 25 05/28/2025 CMP (FEMA LE) sodium 140.0 mmol/ L 136.0- 145.0 Not Available [facility] [address] [facility] 1, [place], [address], 05/28/2025 13:03:35 05/28/20 25 05/28/2025 CMP (FEMA LE) potassium 4.3 mmol/ L 3.5-5. 1 Not Available [facility] [address] [facility] [address], [place], [address], 05/28/2025 13:03:35 05/28/20 25 05/28/2025 CMP (FEMA LE) chloride 104.0 mmol/ L 98.0-1 10.0 normal Not Available [facility] [address] [facility] [address], [place], [address], 05/28/2025 13:03:35 05/28/20 25 05/28/2025 CMP (FEMA LE) C02 28.0 mmol/ L 22.0-3 1.0 Not Available [facility] [address] [facility] [address], [place], [address], 05/28/2025 13:03:35 05/28/20 25 05/28/2025 CMP (FEMA LE) anion gap 8.0 calc Not Available [facility] [address] [facility] [address], [place], [address], 05/28/2025 13:03:35 05/28/20 25 05/28/2025 CMP (FEMA LE) osmolality 288.8 calc Not Available [facility] [address] [facility] [address], [place], [address], 05/28/2025 13:03:35 05/28/20 25 05/28/2025 LIPID PROFI LE (FEMA LE) cholesterol 212.0 mg/dL 0.0-20 0.0 high Not Available [facility] [address], [place], [address], 05/28/2025 13:03:39 05/28/20 25 05/28/2025 LIPID PROFI LE (FEMA LE) trig 121.0 mg/dL 0.0-15 0.0 Not Available [facility] [address], [place], [address], 05/28/2025 13:03:39 05/28/20 25 05/28/2025 LIPID PROFI LE (FEMA LE) HDL - direct 69.0 mg/dL >40.0 Not Available [facility] [address], [place], [address], 05/28/2025 13:03:39 05/28/20 25 05/28/2025 LIPID PROFI LE (FEMA LE) VLDL - direct 24.2 mg/dL Not Available [facility] [address], [place], [address], 05/28/2025 13:03:39 05/28/20 25 05/28/2025 LIPID PROFI LE (FEMA LE) LDL - direct 118.8 mg/dL 0.0-13 0.0 Not Available [facility] [address] [facility] [address] [facility] [[email or web address]] [address], [place], [address], 05/28/2025 13:03:39 05/28/20 25 05/29/2025 VITAM IN D,25- [place],TO SAFIA,I A vitamin [...] /MS is recom tanmay d: order code 87524 (priyanka ents >2yrs ). See Note 1 Note 1 For addit ional infor sandra garcia e refer to http: //[facility] lisa diaz.Que stDia gnost ics.c om/fa q/FAQ 199 (This link is being provi ded for infor king singletary/ educcholo toussaint purpo ses only. ) Not Available [facility] [address] [place], [address], 05/29/2025 04:47:34 04/27/20 24 04/26/2024 MAMMO , scree igor, digit al, bilat eral No observ ation record ed. [email or web address] [facility] [address], [place], [address], 05/02/2024 09:50:57 Result Notes None recorded. Problems Name Problem SNOMED Code Status Onset Date Resolution Date Notes Provider Name and Address Organization Details Recorded Time History of hysterecto my 722014492 Completed 200611/26/2024 Hystere ctomy; Abdomin al; 007 11:36AM by Jasper Valiente CMA, Office Visit; Promote d; acuity set as *; [facility] 09:59:45 Depressive disorder 03853894 Active 2023 SELWYNMontez CALDWELL [facility] 4 09:59:33 Hyperlipid emia 04284154 Active 2023 [facility] 4 09:59:39 Vitamin D deficiency 63325000 Active 2024 Bonifacio Morgan MD [address] [place], [address] , [facility] 5 10:36:47 Problem Notes None recorded. Procedures Surgical History Date Name Laterality Status Provider Name and Address Organization Details Recorded Time 5 colonoscopy completed GALLO MOTA [address] [place], [address], [facility] 01/29/2025 15:04:45 6 hysterectomy completed SELWYN CALDWELL [facility] 11/21/2023 10:00:24 Imaging Results None recorded. Procedure Notes None recorded. Medical Equipment None Reported. Allergies Allergen ID Allergen Name Allergen Category Reaction Reaction Severity Criticality Documentation Date Start Date Code Code System Note Provider Name and Address Organization Details Recorded Time 70198 Ceclor medicatio n hives Not available Not available 02/05/202369500 5 RxNorm Comme nt: Recor ded 01/24 11:36 AM by Jasper xiong, PEDRO LUIS, Offic e Visit ; [address]; Gema high ce: *; ; Not Available [facility] 3 02:27:30 57952 cefaclor medicatio n itching Not available low [...] and Address Organization Details Last Updated DateTime 11/21/2023 45890.63 g 93 % 70 /min 130/88 mm[Hg] [facility] 11/21/2023 10:03:39 Date Recorded Body weight Oxygen saturation Heart rate Systolic And Diastolic Provider Name and Address Organization Details Last Updated DateTime 11/26/2024 41203 g 95 % 68 /min 136/88 mm[Hg] [facility] 11/26/2024 10:11:04 Date Recorded Respiratory rate Provider Name a ri Address Organization Details Last Updated DateTime 04/26/2024 20 /min HAFSA KAMAR [facility] 04/26/2024 13:10:56 Date Recorded Body weight Oxygen saturation Heart rate Systolic And Diastolic Provider Name and Address Organization Details Last Updated DateTime 05/25/2024 68014.78 g 95 % 67 /min 128/88 mm[Hg] SELWYN CALDWELL [facility] 05/25/2024 11:12:40 Date Recorded Body weight Oxygen saturation Heart rate Systolic And Diastolic Provider Name and Address Organization Details Last Updated DateTime 05/28/2025 41340.96 g 92 % 64 /min 132/80 mm[Hg] SELWYN CALDWELL [facility] 05/28/2025 11:04:26 Social History Question Answer Notes LastModified by Organizat ion Details LastModified Time Tobacco Smoking Status Never Smoker SELWYN CALDWELL yamel [facility] 11/21/2023 10:02:41 Is Your Home Air Conditioned? Yes Information not available 04/26/2024 Do You Have A Basement? No Information not available 04/26/2024 Are You Blind Or Do You Have Difficulty Seeing? No Information n ot available 04/26/2024 What Is Your Level Of Caffeine Consumption? Occasional Information not available 04/26/2024 Are You A Caregiver? No Information not available 04/26/2024 What Type Of Jewelry Salesperson Do You Use? None Information not available 04/26/2024 Are You Deaf Or Do You Have Serious Difficulty Hearing? No Information not available 04/26/2024 What Type Of Diet Are You Following? REGULAR Information n ot available 04/26/2024 What Is The Highest Grade Or Level Of School You Have Completed Or The Highest Degree You Have Received? EC13320-2 Information not available 04/26/2024 Do You Have [...] Functional Status Question Answer Note LastModified by Organizat ion Details LastModified Time Do you use any illicit or recreational drugs? No [email or web address] Information not available 11/21/2023 Do you or have you ever used any other forms of tobacco or nicotine? No Information not available 04/26/2024 What is your level of alcohol consumption? None [email or web address] Information not available 11/21/2023 Are you currently [...] Organization Details Recorded Time Tdap 11/05/2020 completed GUTIERREZ Ibarra [facility] [place] 11/21/2023 09:56:01 Past Encounters Encounter ID Performer Location Encounter Start Date Encounter Closed Date Diagnosis/Indication Diagnosis SNOMED-CT Code Diagnosis ICD10 Code Diagnosis IMO Codes Diagnosis Note [id number] Bonifacio Morgan MD [facility] ([facility]) [address] [place] [address] 11/21/2023 09:48:46 11/21/2023 11:13:35 Active or passive immunization 137685229 Z23 Adult [facility] th examination 177927394 Z00.00 Depressive disorder 3548 9007 F32.9 Hyperlipidemia 91732099 E78.5 [id number] GALLO MOTA [facility] ([facility]) [address] [place] [address] 04/26/2024 12:39:05 05/31/2024 14:14:08 [id number] Bonifacio Morgan MD [facility] ([facility]) [address] [place] [address] 05/25/2024 10:52:16 05/25/2024 12:06:52 Depressive disorder 41591525 F32.9 stable to a little worse. DIscussed possible increased dose of Paroxetine for awhile and she wants to try dietary change for awhile but will call if she wants to change to a little higher dose of paroxetine . [id number] Bonifacio Morgan MD [facility] ([facility]) [address] [place] [address] 11/26/2024 09:56:11 11/26/2024 15:23:42 Hyperlipidemia 32826725 E78.5 Depressive disorder 3548 9007 F32.9 Vitamin D deficiency 347 85955 E55.9 81142 improved clinically . now will take OTC vitamin D. [id number] Bonifacio Morgan MD [facility] ([facility]) [address] [place] [address] 05/28/2025 10:48:37 05/28/2025 11:37:25 Depressive disorder 10827013 F32.9 Hyperlipidemia 53180905 E78.5 Health Concerns Section Related Observation LastModified by Organization Detai ls LastModified Time None Recorded Concern Status LastModified by Organization Details LastModified Time None Recorded Advance Directives Directive None Recorded Payers Insurance Date Sequence Insurance Name Policy Number Policy Souza Covered Member ID Souza Member ID Guarantor Name 11/26/2024 1 [employer] (MEDICARE REPLACEMENT /ADVANTAGE - PPO) [id number] Sobia Hollingsworth [id number] Sobia Hollingsworth 05/25/2025 1 [place] - [place]) [id number] Sobia Hollingsworth [id number] Sobia Hollingsworth Notes Date Note Type Note Provider Name and Address Organization Details Recorded Time 11/21/19 24 text/htm l Annual WellnessReported by PatientSocial/Behavioral HistoryFor physical activity, patient reportsdoes not exercise on a regular basis. For diet and nutrition, patient reportshealthy diet. For fracture risk, patient reportsno history of fracturesandno recent explained fracture. For additional lifestyle factors, patient reportsno tobacco useandno alcohol intake.Mental Status:For depression risk, patient reportsno history of depression.Functional AbilityFor hearing, patient reportsno loss of hearing. For vision, patient reportsno vision problems. Anxiety/DepressionReported by PatientHPIFor associated symptoms, patient reportshigh irritability,anxiety, anddepression. For severity, patient reportsdenies suicidal ideations,able to maintain relationships,does not interfere with activities of daily living, andstabilizing. For duration, patient reportschronic. For onset/timing, patient reportsgradual. For modifying factors, patient reportsmedications as directed. HyperlipidemiaReported by PatientHPIFor duration, patient reportschronic. For control, patient reportsusually well controlled. For adherence to treatment plan, patient reportstakes medications as prescribed. Bonifacio Morgan MD [address] [place], [address], [facility] 11/21/2023 10:22:07 04/26/20 24 text/htm l Annual WellnessReported by Patient GALLO MOTA [address] [place], [address], [facility] 06/08/2024 12:16:00 05/25/20 24 text/htm l Anxiety/DepressionReported by PatientHPIFor severity, patient reportsinterference with activities of daily livingbut reportsdenies suicidal ideations. For associated symptoms, patient reportsdepressionandinsomnia. For onset/timing, patient reportsgradual. For modifying factors, patient reportsmedications as directed.A little moodiness. HyperlipidemiaReported by PatientIFor duration, patient reportschronic. For control, patient reportsusually well controlled. For adherence to treatment plan, patient reportstakes medications as prescribed. Bonifacio Morgan MD [address] [place], [address], [facility] 05/25/2024 12:04:10 11/27/19 25 text/htm l Anxiety/DepressionReported by PatientHPIFor context, patient reportsseasonal. For associated symptoms, patient reportsdepressionandsocial withdrawal. For severity, patient reportsdenies suicidal ideations,does not interfere with activities of daily living, andsymptoms improved. For onset/timing, patient reportsgradual. For modifying factors, patient reportsmedications as directed (paroxetine). HyperlipidemiaReported by PatientIFor duration, patient reportschronic. For adherence to treatment plan, patient reportstakes medications as prescribed. Bonifacio Morgan MD [address] [place], [address], [facility] 11/26/2024 10:38:52 05/28/20 25 text/htm l Anxiety/DepressionReported by PatientHPIFor severity, patient reportsinterference with activities [...] have her paroxetine increased. Bonifacio Morgan MD [address] [place] [address], [phone], [facility], [place] 05/28/2025 11:36:24 OBGyn Episode No OBEpisode recorded.
--- OUTSIDE RECORDS SUMMARY | 2025-06-06 17:50 | XMS_ITS | Encounter Summary ---
Author Organization [facility] Address [address] [place] [address] Care Team Providers Care Medical Accounts Receivable Specialist Name Role Phone Chidi Araya MD Primary Care Provider [phone] Encounter Details Date Type Department Care Team (Latest Contact Info) Description 08/15/1998 Outpatient Historical [facility] [place] [address] [address] Chalino Rivas DO NO ADDRESS ON FILE Chest pain, unspecified (Primary Dx) Social History Tobacco Use Types Packs/Day Years Used Date Smoking Tobacco: Never Assessed Comments Unknown Sex and Gender Information Value Date Recorded Sex Assigned at Not on file 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
--- OUTSIDE RECORDS SUMMARY | 2025-06-06 17:50 | XMS_ITS | Encounter Summary ---
Author Organization [facility] Address [address] [place] [address] Care Team Providers Care Stripping Cutter And Winder Name Role Phone Chidi Araya MD Primary Care Provider [phone] Encounter Details Date Type Department Care Team (Latest Contact Info) Description 05/27/1999 Outpatient Historical [facility] [place] [address] [address] Winnie Iqbal NO ADDRESS ON FILE Myalgia and myositis, unspecified (Primary Dx); Spasm of muscle Social History Tobacco Use Types Packs/Day Years Used Date Smoking Tobacco: Never Assessed Comments Unknown Sex and Gender Information Value Date Recorded Sex Assigned at Not on file 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
[2025-06-06 17:52] VITALS: BP 138/100; PULSE 58; O2SAT 92
== END 2025-06-06 17:53 | disposition home or self-care (01) ==
PROVIDERS: Emergency Provider Emergency Medicine; PCP Family Medicine
DX: S61.011A Laceration without foreign body of right thumb without damage to nail, initial encounter (principal); W26.8XXA Contact with other sharp object(s), not elsewhere classified, initial encounter
CPT/HCPCS: 12001; 99282